=== PATIENT | male | born 1960 | race Caucasian/White ===

== ENCOUNTER 2016-05-01 10:58 | Day surgery (SDC) | payer OTHER ==
[2016-04-30 10:44] LABS: HEMOGLOBIN 15.3 g/dL (13.6-17.8)
[2016-04-30 10:46] LABS: HEMATOCRIT 45.7 % (40.0-51.0)
[2016-04-30 10:56] LABS: BUN (BLOOD UREA NITROGEN) 25 MG/DL (6-23); CALCIUM, SERUM 9.2 MG/DL (8.5-10.4); CHLORIDE, SERUM 104 MMOL/L (96-112); CO2 (CARBON DIOXIDE) 30 MMOL/L (24-34); CREATININE 0.84 MG/DL (0.70-1.30); GFR AFRICAN AMERICAN 113 ML/MIN (>=60); GFR NON AFRICAN AMERICAN 97 ML/MIN (>=60); GLUCOSE, SERUM 81 MG/DL (60-99); POTASSIUM, SERUM 4.7 MMOL/L (3.5-5.3); SODIUM, SERUM 142 MMOL/L (135-148)
--- NOTE | ~2016-05-01 | OP ---
Record Of Operation [facility] [address]. [address] NAME: ASHLYN BARRETO : 56 STATUS : REG [facility] PAT#: [id number] AGE: 55 ADM/REG DATE : 05/01/16 MR#: [id number] REPORT SERV DATE: 05/01/16 DICTATED BY: LANNY BALES DATE: 05/01/16 REPORT STATUS : Draft TRANSCRIBED BY: MODL DATE: 05/01/16 DATE OF PROCEDURE: 05/01/2016 PREOPERATIVE DIAGNOSIS: Right trigger thumb. POSTOPERATIVE DIAGNOSIS: Right trigger thumb. PROCEDURE: Right trigger thumb release. SURGEON: Lanny Bales M.D. INSIDE OUTSIDE SALES REPRESENTATIVE: Jessi Jeffery. ANESTHETIC: IV sedation with local anesthetic, Marcaine with epinephrine. ESTIMATED BLOOD LOSS: Less than 5 mL. FLUID: 300 mL crystalloid. TOURNIQUET TIME: Zero. DRAINS: None. COMPLICATIONS: None. INDICATION: A 55-year-old gentleman presented to the office with long-standing pain in the right thumb with catching with flexion extension. Diagnosis made of trigger thumb. He was apprised of the diagnosis and treatment recommendations for operative treatment, which he understood and agreed to proceed with. DESCRIPTION OF PROCEDURE: The patient was identified in the preop holding area. His operative extremity was marked with yes. The patient was then taken to the operative suite and placed in supine position on the operating table. The patient's right upper extremity then prepped and draped to expose the thumb circumferentially. IV sedation was given per Anesthesia as well as a local anesthetic with Marcaine 0.5% with epinephrine. A transverse incision was made in the skin crease of the base of the thumb overlying the swelling in his flexor tendon. Incision was carried down through skin and subcutaneous tissues. Hemostasis was achieved under direct pressure. Ragnell and Heiss retractors were used to expose the A1 ru. This was sharply incised using a 15 scalp blade then carried proximal and distal using section scissors. After successful release of the A1 ru, the patient was awakened and asked to flex and extend his thumb, which he did without further catching. The patient then had the incision closed with single layer closure 4-0 nylon interrupted suture. Xeroform gauze was placed. Sterile dry gauze, sterile John roll, and then a Coban was placed. The patient then was allowed to awaken and transferred to the [facility] and taken to postanesthesia care unit in satisfactory condition having tolerated the procedure well. Sponge and needle counts were correct at the conclusion of the procedure. Record Of Operation [facility] [address] [place]. [address] NAME: ASHLYN BARRETO : 56 STATUS : [facility] [place] PAT#: [id number] AGE: 55 ADM/REG DATE : 05/01/16 MR#: [id number] REPORT SERV DATE: 05/01/16 DICTATED BY: LANNY BALES DATE: 05/01/16 REPORT STATUS : Draft TRANSCRIBED BY: EVIE DATE: 05/01/16 EC/EVIE Lanny Bales M.D. / [id number] CC: Lanny Bales M.D.
[~2016-05-01 10:58] MED LIST: DOCUSOFT S100 MG PO; DURA25 TOP; ENDOCET1 TA3 PO; LISINOPRIL40 MG PO; METHOC500B PO; MOBIC7.5 PO; NEUR300 PO; NEUR600 PO; PCET PO; PERI-COLACE1 TAB PO; PROSCAR5 PO; REMERON45 MG PO; TESTOST CYP100 MG/ML IM; TRAZ100 PO; VIAGRA100 MG PO; ZESTORETIC1 TAB PO; ZOL100 PO
== END 2016-05-01 23:59 | disposition home or self-care (01) ==
LOC: MSC 10:58
PROVIDERS: Orthopaedic Surgery
PROC: 0LN70ZZ Release Right Hand Tendon, Open Approach (ICD-10-PCS; principal; 2016-05-01 12:45)
DX: M65.311 Trigger thumb, right thumb (principal); I10 Essential (primary) hypertension; G47.33 Obstructive sleep apnea (adult) (pediatric); N40.0 Benign prostatic hyperplasia without lower urinary tract symptoms; F43.10 Post-traumatic stress disorder, unspecified; Z88.5 Allergy status to narcotic agent; Z98.1 Arthrodesis status; Z88.8 Allergy status to other drugs, medicaments and biological substances; Z79.1 Long term (current) use of non-steroidal anti-inflammatories (NSAID); Z79.899 Other long term (current) drug therapy; Z98.890 Other specified postprocedural states; Z90.89 Acquired absence of other organs
CPT/HCPCS: 80048; 85014; 85018; 93005; A9270-GY; J0690